=== PATIENT | female | born 1975 | race American Indian/Alaskan Native ===

== ENCOUNTER 2017-02-14 13:16 | Outpatient (CLI) | payer MEDICARE, MEDICAID ==
--- NOTE | 2017-02-14 14:33 | Mammography Report ---
Screening mammogram: Baseline mammogram. The patient has asymmetrically distributed dense breast pattern. Scattered sclerosing adenosis appearing calcifications are noted in the central left breast. There are 2 clusters of less well distinguished calcifications in the posterior central right breast. No evidence of mass or architectural distortion. CAD used. Impression: Indeterminate groupings of right breast calcification. Recommendation: Magnification views of the right breast calcifications. BI-RADS CATEGORY: 0 = Needs additional imaging evaluation ACR BI-RADS MAMMOGRAPHIC CODES: 0 = Needs additional imaging evaluation; 1 = Negative; 2 = Benign; 3 = Probably benign; 4 = Suspicious; 5 = Malignant; 6 = Known biopsy-proven malignancy COMMENT: 1. Dense breast tissue, i.e., adenosis, fibrocystic changes, etc., may obscure an underlying neoplasm. 2. Approximately 10% of cancers are not detected with mammography. 3. A negative mammography report should not delay biopsy if a clinically suspicious mass is present.
== END 2017-02-14 13:17 | disposition home or self-care (01) ==
LOC: MAMMO 13:16
PROVIDERS: ATTEND Internal Medicine
DX: Z12.31 Encounter for screening mammogram for malignant neoplasm of breast (principal)
CPT/HCPCS: 77067; G0202

== ENCOUNTER 2017-03-16 13:23 | Outpatient (CLI) | payer MEDICARE, MEDICAID ==
--- NOTE | 2017-03-16 15:00 | Mammography Report ---
Right mammogram: Magnification views of this patient's right breast are performed in both projections based on recent screening study of February 14. The patient has a neuromuscular disease and has difficulty maintaining position. In the lateral projection there is a grouping of slightly pleomorphic calcifications in the inferior breast. The calcifications are quite small and not particularly heavily calcified making evaluation somewhat difficult. These are questionably noted in the central breast on the CC projection. Multiple attempts in the CC view are all limited due to slight motion during imaging. Impressions: Indeterminate calcifications only well visualized in lateral projection. Recommendation: Stereotactic biopsy. The patient may be able to fully cooperate in the prone position. The alternative is short-term followup in 6 months. The findings and recommendations have been fully discussed with the patient and her mother. BI-RADS CATEGORY: 4 = Suspicious ACR BI-RADS MAMMOGRAPHIC CODES: 0 = Needs additional imaging evaluation; 1 = Negative; 2 = Benign; 3 = Probably benign; 4 = Suspicious; 5 = Malignant; 6 = Known biopsy-proven malignancy COMMENT: 1. Dense breast tissue, i.e., adenosis, fibrocystic changes, etc., may obscure an underlying neoplasm. 2. Approximately 10% of cancers are not detected with mammography. 3. A negative mammography report should not delay biopsy if a clinically suspicious mass is present.
== END 2017-03-16 13:24 | disposition home or self-care (01) ==
LOC: MAMMO 13:23
PROVIDERS: ATTEND Internal Medicine
DX: R92.1 Mammographic calcification found on diagnostic imaging of breast (principal)
CPT/HCPCS: G0206-RT

== ENCOUNTER 2017-09-04 08:47 | Outpatient (CLI) | payer MEDICARE ==
--- NOTE | 2017-09-04 16:06 | Mammography Report ---
RIGHT DIGITAL DIAGNOSTIC MAMMOGRAM : 09/04/17 08:47:00 CLINICAL: Six month follow-up calcifications. A stereotactic biopsy was not technically feasible on 04/19/17 CT inadequate breast thickness. COMPARISON:03/16/17 FINDINGS:Routine views plus ML and CC magnification views were performed. The previously described scattered calcifications are stable with no definite correlation on orthogonal views. No mass architectural distortion. IMPRESSION: Stable probably benign calcifications. BI-RADS CATEGORY: 3 -- Probably Benign RECOMMENDATION: 6 month follow-up magnification views. ACR BI-RADS MAMMOGRAPHIC CODES: 0 = Needs additional imaging evaluation; 1 = Negative; 2 = Benign; 3 = Probably benign; 4 = Suspicious; 5 = Malignant; 6 = Known biopsy-proven malignancy COMMENT: 1. Dense breast tissue, i.e., adenosis, fibrocystic changes, etc., may obscure an underlying neoplasm. 2. Approximately 10% of cancers are not detected with mammography. 3. A negative mammography report should not delay biopsy if a clinically suspicious mass is present. COMMENT: Patient follow-up letters are generated by our [employer] application.
== END 2017-09-04 08:48 | disposition home or self-care (01) ==
LOC: SPVWC 08:47
PROVIDERS: ATTEND Surgery
DX: R92.1 Mammographic calcification found on diagnostic imaging of breast (principal)
CPT/HCPCS: G0206-RT

== ENCOUNTER 2018-01-29 09:06 | Outpatient (CLI) | payer MEDICARE ==
--- NOTE | 2018-01-29 10:12 | Mammography Report ---
BILATERAL DIGITAL DIAGNOSTIC MAMMOGRAM with CAD: 01/29/18 09:06:00 CLINICAL: Six month follow-up calcifications. COMPARISON:09/04/17 FINDINGS:Routine views plus spot magnification views of the right breast were obtained. The breasts are extremely dense which limits the sensitivity of mammography. Stable bilateral probably benign calcifications. No mass or architectural distortion. IMPRESSION: Stable probably benign calcifications. BI-RADS CATEGORY: 3 -- Probably Benign RECOMMENDATION: 6 month follow-up routine views with the need for magnification views to be determined at the time of the exam. ACR BI-RADS MAMMOGRAPHIC CODES: 0 = Needs additional imaging evaluation; 1 = Negative; 2 = Benign; 3 = Probably benign; 4 = Suspicious; 5 = Malignant; 6 = Known biopsy-proven malignancy COMMENT: 1. Dense breast tissue, i.e., adenosis, fibrocystic changes, etc., may obscure an underlying neoplasm. 2. Approximately 10% of cancers are not detected with mammography. 3. A negative mammography report should not delay biopsy if a clinically suspicious mass is present. COMMENT: Patient follow-up letters are generated by our [employer] application.
== END 2018-01-29 09:07 | disposition home or self-care (01) ==
LOC: SPVWC 09:06
PROVIDERS: ATTEND Surgery
DX: R92.1 Mammographic calcification found on diagnostic imaging of breast (principal)
CPT/HCPCS: 77066

== ENCOUNTER 2018-01-30 10:30 | Outpatient (CLI) | payer MEDICARE ==
--- NOTE | 2018-01-30 11:21 | XRay Report ---
LEFT FINGER RADIOGRAPHS INDICATION: Left middle finger contusion. COMPARISON: None similar. FINDINGS: An AP view of the left hand with oblique and lateral projections of the left third digit demonstrate grossly intact bones and joints. Slight soft tissue swelling about the third DIP joint not entirely excluded. No radiopaque foreign body. CONCLUSION: No acute bony abnormality, as described. Please correlate. Thank you for the opportunity to participate in this patient's care.
== END 2018-01-30 10:31 | disposition home or self-care (01) ==
LOC: XRAY 10:30
PROVIDERS: ATTEND Internal Medicine
DX: S60.032A Contusion of left middle finger without damage to nail, initial encounter (principal); X58.XXXA Exposure to other specified factors, initial encounter; Y93.89 Activity, other specified; Y92.89 Other specified places as the place of occurrence of the external cause; Y99.8 Other external cause status

== ENCOUNTER 2019-03-04 09:33 | Outpatient (CLI) | payer MEDICARE ==
--- NOTE | 2019-03-04 10:23 | Mammography Report ---
BILATERAL DIGITAL SCREENING MAMMOGRAM with CAD : 03/04/19 09:33:00 CLINICAL: Routine screening. COMPARISON:01/29/18 FINDINGS: The breasts are extremely dense which may obscure small masses and limit the sensitivity of mammography.Scattered bilateral benign calcifications are unchanged. No mass, architectural distortion or suspicious calcifications. IMPRESSION: No mammographic evidence of malignancy. BI-RADS CATEGORY: 2 -- Benign RECOMMENDATION: Routine mammographic screening in one year. COMMENT: Patient follow-up letters are generated by our [employer] application.
== END 2019-03-04 09:34 | disposition home or self-care (01) ==
LOC: SPVWC 09:33
PROVIDERS: ATTEND Surgery
DX: Z12.31 Encounter for screening mammogram for malignant neoplasm of breast (principal)
CPT/HCPCS: 77067

== ENCOUNTER 2021-03-15 08:35 | Outpatient (CLI) | payer MEDICARE ==
--- NOTE | 2021-03-15 10:34 | Mammography Report ---
DIGITAL SCREENING MAMMOGRAM WITH CAD, 03/15/2021 CLINICAL INFORMATION / INDICATION: Routine screening mammography. TECHNIQUE: Digital bilateral 2D mammography was obtained in the craniocaudal and mediolateral obliqu e projections. This examination was interpreted with the benefit of Computer-Aided Detection analysis . COMPARISON: 03/09/2020, 03/04/2019 FINDINGS: Breast Density: The breasts are extremely dense, which lowers the sensitivity of mammography. No dominant mass, suspicious calcifications, or architectural distortion in either breast. Bilateral benign-appearing calcifications are unchanged. IMPRESSION: No mammographic evidence of malignancy. Follow up recommendation: Routine yearly BI-RADS Category 2: Benign. A "normal" or negative report should not discourage follow up or biopsy of a clinically significant f inding. A written summary of these findings will be mailed to the patient. The patient will be entered into a mammography reporting system which will generate a reminder letter for the patient's next appointmen t at the appropriate interval. The [employer] recommends yearly mammograms starting at age 40 and continuing as l bc as a woman is in good health. Breast MRI is recommended for women with an approximate 20-25% or greater lifetime risk of breast cancer, including women with a strong family history of breast or ova nazia cancer or who have been treated for Hodgkin's disease. Signer Name: José Miguel Valenzuela MD Signed: 03/15/2021 10:30 AM Workstation Name: [id number]
== END 2021-03-15 08:36 | disposition home or self-care (01) ==
LOC: SPVWC 08:35
PROVIDERS: ATTEND Surgery
DX: Z12.31 Encounter for screening mammogram for malignant neoplasm of breast (principal); N64.89 Other specified disorders of breast
CPT/HCPCS: 77067

== ENCOUNTER 2022-03-21 09:20 | Outpatient (CLI) | payer MEDICARE ==
--- NOTE | 2022-03-22 08:18 | Mammography Report ---
DIGITAL SCREENING MAMMOGRAM WITH CAD, 03/21/2022 CLINICAL INFORMATION / INDICATION: Routine screening mammography. SCREENING MAMMO Z12.31 TECHNIQUE: Digital bilateral 2D mammography was obtained in the craniocaudal and mediolateral obliqu e projections. This examination was interpreted with the benefit of Computer-Aided Detection analysis . COMPARISON: 01/29/2018 through 03/15/2021. FINDINGS: Breast Density: The breasts are extremely dense, which lowers the sensitivity of mammography. No dominant mass, suspicious calcifications, or architectural distortion in either breast. There are benign scattered calcifications bilaterally, more numerous on the left than the right. IMPRESSION: No mammographic evidence of malignancy. Follow up recommendation: Routine yearly screening mammogram. BI-RADS Category 2: BENIGN. A "normal" or negative report should not discourage follow up or biopsy of a clinically significant f inding. A written summary of these findings will be mailed to the patient. The patient will be entered into a mammography reporting system which will generate a reminder letter for the patient's next appointmen t at the appropriate interval. The [employer] recommends yearly mammograms starting at age 40 and continuing as l bc as a woman is in good health. Breast MRI is recommended for women with an approximate 20-25% or greater lifetime risk of breast cancer, including women with a strong family history of breast or ova nazia cancer or who have been treated for Hodgkin's disease. Signer Name: Jaydon Delong MD Signed: 03/22/2022 8:14 AM Workstation Name: [id number]
== END 2022-03-21 09:21 | disposition home or self-care (01) ==
LOC: SPVWC 09:20
PROVIDERS: ATTEND Internal Medicine
DX: Z12.31 Encounter for screening mammogram for malignant neoplasm of breast (principal)
CPT/HCPCS: 77067